=== PATIENT | female | born 1980 | race Caucasian/White ===

== ENCOUNTER 2018-05-03 16:37 | Emergency (ER) | payer BC, MEDICARE ==
[~2018-05-03] VITALS: Ht 170.2 cm; Wt 58.0 kg
[2018-05-03] MEDS ORDERED: ALBUTEROL/IPRATROPIUM 2.5MG/0.5MG, 3 ML NPPB SCH (17:00)
[2018-05-03] MEDS ORDERED: ALBUTEROL/IPRATROPIUM 2.5MG/0.5MG, 3 ML ONE (17:06)
[2018-05-03 19:38] VITALS: BP 110/57
== END 2018-05-03 19:40 | disposition home or self-care (01) ==
LOC: ED 19:20
DX: J45.31 Mild persistent asthma with (acute) exacerbation (principal); Z88.0 Allergy status to penicillin; Z88.2 Allergy status to sulfonamides
CPT/HCPCS: 36415; 71046; 85379; 93005; 94640; 99285; J7512